=== PATIENT | female | born 1960 | race African-American/Black ===

== ENCOUNTER 2024-04-12 13:58 | Emergency (ER) | payer OTHER ==
[~2024-04-12] VITALS: Ht 157.5 cm; Wt 45.0 kg
[2024-04-12 14:12] VITALS: BP 168/97; PULSE 86; RESP 18; TEMP 98.8; O2SAT 100
[2024-04-12] MEDS ORDERED: keppra (14:12)
[2024-04-12] MEDS: LEVETIRACETAM 500MG TABLET PO ONE (14:35)
[2024-04-12] MEDS ORDERED: KEPP500 MT (14:43)
== END 2024-04-12 15:10 | disposition home or self-care (01) ==
LOC: ER 14:36
DX: R56.9 Unspecified convulsions (principal); Z76.0 Encounter for issue of repeat prescription
CPT/HCPCS: 99283

== ENCOUNTER 2024-06-14 12:16 | Emergency (ER) | payer OTHER ==
[~2024-06-14] VITALS: Ht 157.5 cm; Wt 55.0 kg
[~2024-06-14 12:16] MED LIST: KEPP500 MT; keppra
[2024-06-14 12:18] VITALS: O2SAT 99
[2024-06-14] MEDS: LEVETIRACETAM 500MG PREMIX 100 ML IV ONE (14:15)
[2024-06-14] MEDS: SODIUM CHLORIDE 0.9% 1,000 ML IV ONE (14:20)
[2024-06-14 14:36] LABS: CHLORIDE 106 mEq/L (98-107); POTASSIUM 3.1 mEq/L (3.5-5.1); SODIUM 137 mEq/L (136-145)
[2024-06-14 14:37] LABS: CALCIUM 8.1 mg/dL (8.7-10.4); CARBON DIOXIDE 21 mEq/L (21-32)
[2024-06-14 14:39] LABS: PROTHROMBIN TIME 10.9 sec (9.6-11.0)
[2024-06-14 14:42] LABS: AMMONIA 57 uMol/L (<32); CREATININE 0.8 mg/dL (0.6-1.0); GLUCOSE 176 mg/dL (70-105); TROPONIN I HIGH SENSITIVITY 4 ng/L (3.0-34); UREA NITROGEN BLOOD 6 mg/dL (9-23)
[2024-06-14 14:44] LABS: ALANINE AMINOTRANSFERASE 14 IU/L (10-49); ALBUMIN 4.3 g/dL (3.2-4.8); ASPARTATE AMINOTRANSFERASE 25 IU/L (<34); BILIRUBIN DIRECT 0.2 mg/dL (<=3.0); BILIRUBIN TOTAL 0.5 mg/dL (0.1-1.0); PROTEIN TOTAL 7.3 g/dL (6.0-8.3)
[2024-06-14 14:48] LABS: DIFFERENTIAL COMMENT 1; HEMATOCRIT. 40.7 % (36.0-48.0); HEMOGLOBIN. 12.8 g/dL (12.0-16.0); MEAN CORPUSCULAR HEMOGLOBIN 26.2 pg (28.0-32.0); MEAN CORPUSCULAR HGB CONC 31.4 g/dL (31.0-37.0); MEAN CORPUSCULAR VOLUME 83.3 fL (81.0-99.0); MEAN PLATELET VOLUME 8.3 fl (7.4-10.4); PLATELET 372 x1000/uL (130-400); RED BLOOD CELL COUNT 4.89 mill/uL (4.2-5.4); RED CELL DISTRIBUTION WIDTH 19.1 % (11.6-14.6); WHITE BLOOD COUNT 10.3 x1000/uL (4.5-11.0)
[2024-06-14 15:02] LABS: ETHANOL BLOOD < 10 mg/dL (<10)
[2024-06-14] MEDS: LACTULOSE 20G/30ML UDC PO ONE (16:55)
[2024-06-14] MEDS: POTASSIUM CHLORIDE 20MEQ/PACKET PO ONE (16:56)
[2024-06-14 16:59] LABS: ANISOCYTOSIS 1+; PLATELET ESTIMATE NORMAL
[2024-06-14 17:01] LABS: OVALOCYTES 1+
[2024-06-14 17:11] LABS: CLARITY URINE CLEAR (CLEAR); COLOR URINE YELLOW (YELLOW); GLUCOSE URINE TRACE (NEGATIVE); KETONES URINE NEGATIVE (NEGATIVE); LEUKOCYTE ESTERASE URINE TRACE (NEGATIVE); NITRITE URINE NEGATIVE (NEGATIVE); OCCULT BLOOD URINE TRACE (NEGATIVE); PH URINE 6.5 (4.5-8.0); PROTEIN URINE TRACE (NEGATIVE); SPECIFIC GRAVITY URINE 1.005 (1.005-1.030); UROBILINOGEN URINE 0.2 E.U./dL (0.2-1.0)
[2024-06-14 17:21] LABS: *AMPHETAMINES SCREEN URINE NEGATIVE (NEGATIVE); *BARBITURATES SCREEN URINE NEGATIVE (NEGATIVE); *BENZODIAZEPINES SCREEN URINE NEGATIVE (NEGATIVE); *COCAINE SCREEN URINE NEGATIVE (NEGATIVE); METHADONE URINE SCREEN NEGATIVE (NEGATIVE)
[2024-06-14 17:22] LABS: CANNABINOID URINE SCREEN PRESUMPTIVE POSITIVE (NEGATIVE); ECSTASY MDMA SCREEN URINE NEGATIVE (NEGATIVE); OPIATES URINE SCREEN NEGATIVE (NEGATIVE); PHENCYCLIDINE URINE SCREEN NEGATIVE (NEGATIVE)
[2024-06-14] MEDS ORDERED: HYDRALAZINE 20MG/ML VIAL IV PRN (17:30)
[2024-06-14] MEDS ORDERED: ACETAMINOPHEN 650MG SUPP PR PRN (17:30)
[2024-06-14] MEDS ORDERED: ONDANSETRON HCL 4MG/2ML INJ IV PRN (17:30)
[2024-06-14] MEDS ORDERED: IPRATROPIUM/ALBUTEROL 0.5-3(2.5)MG/3ML NEB HHN PRN (17:30)
[2024-06-14] MEDS ORDERED: LORAZEPAM 2MG/ML INJ IV PRN (17:30)
[2024-06-14] MEDS ORDERED: DOCUSATE SODIUM 100MG CAPSULE PO PRN (17:30)
[2024-06-14 18:28] LABS: BACTERIA URINE 1+; RBC URINE 0-2 /hpf (0-2); SQUAMOUS EPITHELIAL CELL URINE FEW /lpf (RARE/1+); WBC URINE 0-2 /hpf (0-2)
[2024-06-14] MEDS: SODIUM CHLORIDE 0.9% 1,000 ML IV SCH (19:58)
[2024-06-14] MEDS ORDERED: LEVETIRACETAM 500MG in NACL 100ML PREMIX IV SCH (21:00)
[2024-06-14] MEDS: LEVETIRACETAM 500MG PREMIX 100ML IV SCH (21:52)
[2024-06-14] MEDS: LACTULOSE 20G/30ML UDC PO SCH (22:00)
[2024-06-15 01:06] VITALS: BP 137/78; PULSE 75; RESP 17; O2SAT 98
[2024-06-15] MEDS ORDERED: AMLODIPINE 5MG TABLET PO SCH (09:00)
== END 2024-06-15 01:00 | disposition left against medical advice (07) ==
LOC: ER 13:10 → EDBEDREQTM 16:36 → EDBEDREQ 16:36 → ER 06-15 01:00
DX: G40.909 Epilepsy, unspecified, not intractable, without status epilepticus (principal); R41.82 Altered mental status, unspecified; E87.6 Hypokalemia
CPT/HCPCS: 80076; 80305; 80048; 81003; 80320; 82140; 83036; 83880; 83735; 84443; 85025; 85610; 87086; 84484; 36415; 71045; 70450; 93005; 96361; 96365; 96366; 99285; J1953; J7030; G0480